=== PATIENT | male | born 1995 | race Caucasian/White ===

== ENCOUNTER 2018-06-20 22:23 | Emergency (ER) | payer SELFPAY ==
[~2018-06-20] VITALS: Ht 182.9 cm; Wt 86.2 kg
--- NOTE | 2018-06-20 22:30 | NUR ---
PT CALLED TO TRIAGE, NO RESPONSE
--- NOTE | 2018-06-20 23:20 | NUR ---
Pt came to emergency room complaining of L Forearm pain after injecting heroine/meth/zoie this morning pain started 2hrs ago. Pt [id number]. Respirations even and unlabored. Pt ambulated to bed 3. Pt put on the monitor and pending eval from ER MD.
[2018-06-20 23:45] VITALS: BP 128/72
--- NOTE | 2018-06-21 00:20 | NUR ---
Patient eloped from facility. ER MD notified.
== END 2018-06-21 00:23 | disposition left against medical advice (07) ==
LOC: ER 22:36
DX: L03.114 Cellulitis of left upper limb (principal); F19.10 Other psychoactive substance abuse, uncomplicated; F11.90 Opioid use, unspecified, uncomplicated; F32.9 Major depressive disorder, single episode, unspecified; F17.200 Nicotine dependence, unspecified, uncomplicated; F15.10 Other stimulant abuse, uncomplicated; F16.10 Hallucinogen abuse, uncomplicated; Z60.2 Problems related to living alone
CPT/HCPCS: Z7502